=== PATIENT | female | born 1980 ===

== ENCOUNTER 2021-06-08 12:30 | Emergency (ER) | payer SELFPAY ==
[~2021-06-08] VITALS: Ht 160 cm; Wt 89.1 kg
[2021-06-08 12:37] VITALS: BP 125/81
[2021-06-08] MEDS ORDERED: fluorescein sod 1mg ophthalmic strip LEFTEYE ONE (13:15)
[2021-06-08] MEDS ORDERED: TETRAcaine 0.5% ophthalmic drops 15ml LEFTEYE ONE (13:15)
[2021-06-08] MEDS ORDERED: proparacaine 0.5% ophthalmic drops 15ml EACHEYE ONE (13:30)
[2021-06-08] MEDS ORDERED: NEO/5DRO7 LEFTEYE (13:58)
[2021-06-08] MEDS ORDERED: erythromycin ophthalmic ointment 1gm tube LEFTEYE ONE (14:00)
== END 2021-06-08 14:21 | disposition home or self-care (01) ==
LOC: ER 12:31
DX: S05.02XA Injury of conjunctiva and corneal abrasion without foreign body, left eye, initial encounter (principal); Z79.899 Other long term (current) drug therapy; W26.8XXA Contact with other sharp object(s), not elsewhere classified, initial encounter; Y93.89 Activity, other specified; Y92.89 Other specified places as the place of occurrence of the external cause; Y99.8 Other external cause status
CPT/HCPCS: 99283; J3490